=== PATIENT | female | born 1995 | race Caucasian/White ===

== ENCOUNTER 2023-04-03 12:52 | Outpatient (REF) | payer OTHER, SELFPAY ==
[2023-04-03 13:06] VITALS: BMI 27.5
[2023-04-03 13:07] VITALS: BP 118/63; PULSE 65; RESP 16; TEMP 36.6; O2SAT 100
[2023-04-03 14:40] VITALS: BP 128/71; PULSE 69; RESP 16; O2SAT 99
== END 2023-04-03 12:53 | disposition home or self-care (01) ==
LOC: HO.MS 12:52
PROVIDERS: Visit Provider Ophthalmology
PROC: (CPT 67700; principal; 2023-04-03 17:00)
DX: H00.14 Chalazion left upper eyelid (principal)
CPT/HCPCS: 67700